=== PATIENT | female | born 1955 | race Caucasian/White ===

== ENCOUNTER 2018-06-07 08:55 | Outpatient (CLI) | payer BC ==
--- NOTE | 2018-06-07 11:19 | ULT ---
HEPATIC ULTRASOUND DOPPLER DUPLEX: 06/07/2018 HISTORY: Autoimmune hepatitis, K75.4. Splenomegaly, R16.1. 62-year-old female. TECHNIQUE: Zuñiga-scale images of the liver and spleen. Color-flow and spectral analysis of major blood vessels associated with the liver. FINDINGS: Hepatic margins are nodular. Hepatic echogenicity is normal. No discrete solid or cystic hepatic ma ss is identified (but multiphase CT with and without contrast would be much more sensitive for the de tection of hepatic lesions than ultrasound). Craniocaudal dimension of the right lobe of the liver i s 20 cm. Normal gallbladder wall thickness, with no pericholecystic fluid, no gallstones, and no sludge. Common duct caliber 4 mm. Nonspecific sonographic appearance of the pancreas. The spleen has a lobular hilum and measures 18.5 x 4.5 x 19 cm. Hepatopetal flow and appropriate portal venous waveforms involving the portal vein and the splenic ve in. Hepatofugal flow with appropriate pulsed Doppler waveforms in the right, middle, and left hepatic vei ns. Hepatopetal flow demonstrated in the hepatic artery with normal pulsatile waveform. IMPRESSION: 1. Splenomegaly. 2. Lobular hepatic margins, which may or may not represent cirrhosis. 3. Appropriate directional flow and appropriate pulsed Doppler waveforms of all major vessels associ ated with the liver. POS: SAMMY
== END 2018-06-07 08:56 | disposition home or self-care (01) ==
LOC: BICULT 08:55
PROVIDERS: ATTEND Physician Assistant Medical
DX: Z12.11 Encounter for screening for malignant neoplasm of colon (principal); K75.4 Autoimmune hepatitis; R16.1 Splenomegaly, not elsewhere classified; E66.01 Morbid (severe) obesity due to excess calories
CPT/HCPCS: 76705

== ENCOUNTER 2021-06-25 06:46 | Day surgery (SDC) | payer BC, MEDICARE ==
[2021-06-23 11:29] VITALS: BMI 45.4
[2021-06-25] MEDS ORDERED: Lidocaine 1% PF 5 ML VIAL ONE (09:05)
[2021-06-25] MEDS ORDERED: PROPOFOL 200 MG/20 ML VIAL ONE (09:05)
== END 2021-06-25 10:38 | disposition home or self-care (01) ==
LOC: SDC 06:46
PROVIDERS: ATTEND Internal Medicine
PROC: 0DB78ZX Excision of Stomach, Pylorus, Via Natural or Artificial Opening Endoscopic, Diagnostic (ICD-10-PCS; principal; 2021-06-25)
PROC: 0DJD8ZZ Inspection of Lower Intestinal Tract, Via Natural or Artificial Opening Endoscopic (ICD-10-PCS; principal; 2021-06-25)
DX: Z12.11 Encounter for screening for malignant neoplasm of colon (principal); K29.50 Unspecified chronic gastritis without bleeding; B96.81 Helicobacter pylori [H. pylori] as the cause of diseases classified elsewhere; K25.9 Gastric ulcer, unspecified as acute or chronic, without hemorrhage or perforation; K74.60 Unspecified cirrhosis of liver; Z79.82 Long term (current) use of aspirin; Z79.899 Other long term (current) drug therapy; Z90.49 Acquired absence of other specified parts of digestive tract
CPT/HCPCS: 88305; 88312; J2704

== ENCOUNTER 2022-02-13 09:20 | Outpatient (CLI) | payer BC | END 2022-02-13 09:21 | disposition home or self-care (01) | LOC: ULT 09:20 | PROVIDERS: ATTEND Internal Medicine | DX: K75.4 Autoimmune hepatitis (principal); K74.60 Unspecified cirrhosis of liver; R10.13 Epigastric pain; K29.70 Gastritis, unspecified, without bleeding; R16.1 Splenomegaly, not elsewhere classified | CPT/HCPCS: 76700 ==

== ENCOUNTER 2024-05-10 13:04 | Outpatient (CLI) | payer BC, SELFPAY ==
[2024-05-10 14:39] LABS: #Basophils Less than 0.03 10x3/uL (0.0-0.2); %Basophils 0.6 % (0.0-1.0); %Eosinophils 4.1 % (0.0-10.0); %Lymphocytes 29.7 % (21.0-51.0); %Monocytes 6.1 % (0.0-10.0); %Neutrophils 58.9 % (42.0-75.0); Hematocrit 34.2 % (36.0-47.0); Hemoglobin 11.3 g/dL (12.0-16.0); Mean Corpuscular Hemoglobin 31.4 pg (27.0-31.0); Mean Platelet Volume 9.6 fL (7.4-10.4); Platelet Count 192 10x3/uL (130-400)
[2024-05-10 14:51] LABS: Bilirubin Negative (Negative); Blood, Urine Negative (Negative); Clarity Clear (Clear); Glucose, Urine (Dipstick) Normal (Negative); Ketone, Urine Negative (Negative); Leukocyte Negative Leu/uL (Negative); Nitrite Negative (Negative); Protein, Urine (Dipstick) Negative (Neg-Trace); Urobilinogen Normal mg/dL (Less than 2)
[2024-05-10 14:58] LABS: Prothrombin Time 13.5 sec (12.0-14.7)
[2024-05-10 15:01] LABS: Anion Gap 10 mmol/L (10-20); BUN (Urea Nitrogen) 22 mg/dL (9.8-20.1); Calc. Creatinine Clearance 0 mL/min (70-130); Calcium 9.5 mg/dL (7.8-10.44); Carbon Dioxide 26 mmol/L (23-31); Chloride 109 mmol/L (98-107); Estimated GFR 90; Glucose 85 mg/dL (80-115); Potassium 3.7 mmol/L (3.5-5.1); Sodium 141 mmol/L (136-145)
== END 2024-05-10 13:05 | disposition home or self-care (01) ==
LOC: LABBT 13:04
PROVIDERS: ATTEND Orthopaedic Surgery
DX: Z01.818 Encounter for other preprocedural examination (principal); M17.11 Unilateral primary osteoarthritis, right knee
CPT/HCPCS: 71046; 80048; 81003; 85025; 85610; 87081; 93005; 93010

== ENCOUNTER 2024-05-10 14:13 | Outpatient (CLI) | payer OTHER | END 2024-05-10 14:14 | disposition home or self-care (01) | LOC: CT 14:13 | PROVIDERS: ATTEND Orthopaedic Surgery | DX: M17.11 Unilateral primary osteoarthritis, right knee (principal); M25.461 Effusion, right knee ==

== ENCOUNTER 2024-05-15 08:48 | Observation (INO) | payer BC ==
[2024-05-10 13:37] VITALS: BMI 31.1
[2024-05-15] MEDS ORDERED: Lidocaine 1% PF 5 ML VIAL ONE (09:14)
[2024-05-15] MEDS ORDERED: PROPOFOL 200 MG/20 ML VIAL ONE (09:14)
[2024-05-15] MEDS ORDERED: Bupivacaine HCl 0.5%/Epinephrine 1:200,000/PF 30 ml Vial ONE (09:14)
[2024-05-15] MEDS ORDERED: Zolpidem Tartrate 5 MG TAB PO PRN ×2 (09:30→10:58)
[2024-05-15] MEDS ORDERED: HYDROcodone/Acetaminophen 10/325 mg Tablet PO PRN (09:30)
[2024-05-15] MEDS ORDERED: Promethazine HCl 25 MG/ML VIAL IM PRN ×2 (09:30→10:58)
[2024-05-15] MEDS ORDERED: Ropivacaine 0.2% 550 ML 550 ML NERVE BLCK SCH (09:30)
[2024-05-15] MEDS ORDERED: fentaNYL 50 mcg/mL 1 mL Vial SLOW IVP PRN (09:30)
[2024-05-15] MEDS ORDERED: Acetaminophen 325 MG TAB PO PRN (10:58)
[2024-05-15] MEDS ORDERED: diphenhydrAMINE 25 MG CAP PO PRN (10:58)
[2024-05-15] MEDS ORDERED: Ondansetron PF 4 MG/2 ML Vial IVP PRN (10:58)
[2024-05-15] MEDS ORDERED: Tranexamic Acid 1,000 MG in Sodium Chloride 0.9% 100 ML IVPB SCH (11:00)
[2024-05-15] MEDS ORDERED: fentaNYL 50 mcg/mL 1 mL Vial ONE ×3 (11:13→13:56)
[2024-05-15] MEDS: Ondansetron PF 4 MG/2 ML Vial IVP PRN (16:46)
[2024-05-15] MEDS: Ketorolac Tromethamine 30 MG (1 mL) VIAL IVP SCH (16:46)
[2024-05-15] MEDS: traMADol HCl 50 MG TAB PO PRN (16:47)
[2024-05-15] MEDS: CEFAZOLIN 2 GM in Sodium Chloride 0.9% 100 ML IVPB SCH (16:47)
[2024-05-15] MEDS: Sodium Chloride 0.9% 1,000 ML IV SCH (16:54)
[2024-05-15] MEDS ORDERED: Ferrous Gluconate 324 MG TAB PO SCH (21:00)
[2024-05-15] MEDS: TRAZODONE 50 MG PO SCH (21:48)
[2024-05-15] MEDS: Aspirin 81 mg Enteric Coated Tablet PO SCH (21:48)
[2024-05-15] MEDS: Vancomycin (BATCH) 1.5 GM in Premix 1 BAG IVPB SCH (21:49)
[2024-05-15] MEDS: Pantoprazole DR 40 MG TAB PO SCH (21:49)
[2024-05-15] MEDS: Senokot S 8.6-50 MG TAB PO SCH (21:49)
[2024-05-15] MEDS: Lisinopril 20 MG TAB PO SCH (21:49)
[2024-05-16 06:13] LABS: Hematocrit 28.9 % (36.0-47.0); Hemoglobin 9.6 g/dL (12.0-16.0); Mean Corpuscular HGB CONC 33.2 g/dL (32.0-36.0); Mean Corpuscular Hemoglobin 31.8 pg (27.0-31.0); Mean Corpuscular Volume 95.7 fL (78.0-98.0); Mean Platelet Volume 9.2 fL (7.4-10.4); Platelet Count 129 10x3/uL (130-400); RBC Distribution Width 14.4 % (11.5-14.5); Red Blood Cell (RBC) Count 3.02 mill/uL (4.20-5.40)
[2024-05-16 08:32] VITALS: BP 114/75; TEMP 97.9
[2024-05-16] MEDS ORDERED: Ondansetron ODT 4 MG TAB PO PRN (09:31)
[2024-05-16] MEDS: Multivitamin W/ Minerals 1 TAB PO SCH (09:35)
[2024-05-16] MEDS: azaTHIOprine 50 MG TAB PO SCH (09:37)
[2024-05-16] MEDS: Atorvastatin Calcium 40 MG TAB PO SCH (09:37)
[2024-05-16] MEDS: Ferrous Sulfate 325 MG TAB PO SCH (09:37)
[2024-05-16] MEDS: Ascorbic Acid 500 mg Chewable Tablet PO SCH (09:37)
[2024-05-16] MEDS: HYDROcodone/Acetaminophen 10/325 mg Tablet PO PRN (11:18)
== END 2024-05-16 11:35 | disposition home or self-care (01) ==
LOC: SDC 08:48 → SURG B 15:33
PROVIDERS: ADMIT Orthopaedic Surgery; ATTEND Orthopaedic Surgery
PROC: 0SRC0JZ Replacement of Right Knee Joint with Synthetic Substitute, Open Approach (ICD-10-PCS; principal; 2024-05-15)
PROC: 3E0T3BZ Introduction of Anesthetic Agent into Peripheral Nerves and Plexi, Percutaneous Approach (ICD-10-PCS; 2024-05-15)
DX: M17.11 Unilateral primary osteoarthritis, right knee (principal); I10 Essential (primary) hypertension; D64.9 Anemia, unspecified; G89.29 Other chronic pain; K75.9 Inflammatory liver disease, unspecified; Z87.59 Personal history of other complications of pregnancy, childbirth and the puerperium; Z98.890 Other specified postprocedural states; Z79.899 Other long term (current) drug therapy
CPT/HCPCS: 0055T; 27447; 64448; 36415; 85027; A4306; C1713; C1776; C1889; J1885; J2405; J2704; J2795; J3010; J3370; J7030; J7500